=== PATIENT | female | born 2000 | race Caucasian/White ===

== ENCOUNTER 2019-02-07 06:44 | Emergency (ER) | payer MEDICAID, OTHER ==
[~2019-02-07] VITALS: Ht 175.3 cm; Wt 59.5 kg
[2019-02-07 07:32] LABS: CLARITY,URINE CLOUDY (Clear); COLOR,URINE YELLOW (Yellow); GLUCOSE, URINE NEGATIVE (Neg); KETONES,URINE TRACE mg/dl (Neg); LEUKOCYTE ESTERASE ,URINE TRACE (Neg); NITRITES, URINE NEGATIVE (Neg); OCCULT BLOOD,URINE LARGE (Neg); PROTEIN,URINE 100 mg/dl (Neg)
[2019-02-07 07:33] LABS: UA COLLECTION TYPE CLN CATCH MIDSTREAM
[2019-02-07 07:38] LABS: URINE HCG NEGATIVE (NEG)
[2019-02-07 07:43] LABS: MUCUS STRANDS MODERATE /LPF (Neg); SQUAMOUS EPITHELIAL CELL,UR FEW /LPF (FEW)
[2019-02-07 07:44] LABS: BACTERIA,URINE FEW /HPF (Neg); RBC,URINE 50-100 /HPF (0-2)
[2019-02-07] MEDS ORDERED: normal saline 1000ML IV soln IVB ONE (08:05)
[2019-02-07] MEDS ORDERED: ondansetron/PF 4mg/2ml inj IV ONE (08:05)
[2019-02-07] MEDS ORDERED: morphine 4 MG/ML inj SYRINge IV PRN (08:05)
--- NOTE | 2019-02-07 08:28 | NUR ---
TO CT. PT BEGAN HAVING INCREASING SEVERE LEFT ABDOMINAL/HIP PAIN 5-10 MINUTES AGO THAT GRADUALLY WORSENED. MORPHINE AND ZOFRAN GIVEN.
[2019-02-07 08:40] LABS: ALANINE AMINOTRANSFERASE 21 U/L (12-78); ALBUMIN 4.3 G/DL (3.4-5.0); ALBUMIN/GLOBULIN RATIO 1.2 (1.1-1.5); ALKALINE PHOSPHATASE 72 IU/L (20-180); ANION GAP 11 (8-16); ASPARTATE AMINO TRANSFERASE 23 U/L (10-37); BILIRUBIN,TOTAL 0.6 MG/DL (0.1-1.0); BLOOD UREA NITROGEN 12 MG/DL (7-18); BUN/CREATININE RATIO 16.2 (6.6-38.0); CALCIUM 9.5 MG/DL (8.5-10.1); CHLORIDE 104 MMOL/L (99-107); CREATININE 0.74 MG/DL (0.40-0.90); GLUCOSE 98 MG/DL (70-104); LIPASE 98 U/L (73-393); POTASSIUM 3.6 MMOL/L (3.5-5.1); SODIUM 140 MMOL/L (135-145); TOTAL CARBON DIOXIDE 24.6 MMOL/L (24-32); TOTAL PROTEIN 7.8 G/DL (6.4-8.2); eGFR > 90 ML/MIN
[2019-02-07 08:45] LABS: BASOPHILS % (AUTO) 0.7 % (0-1); EOSINOPHILS # (AUTO) 0.2 X10'3 (0-0.9); EOSINOPHILS % (AUTO) 3.2 % (0-6); HEMATOCRIT 42.3 % (35.0-45.0); HEMOGLOBIN 14.3 g/dl (12.0-16.0); LYMPHOCYTES # (AUTO) 1.5 X10'3 (1.1-4.8); LYMPHOCYTES % (AUTO) 26.5 % (21-51); MEAN CORPUSCULAR HEMOGLOBIN 31.5 PG (27.0-31.0); MEAN CORPUSCULAR HGB CONC 33.8 g/dL (33.0-36.5); MEAN CORPUSCULAR VOLUME 93.4 FL (78-98); MEAN PLATELET VOLUME 8.7 FL (7.4-10.4); MONOCYTES # (AUTO) 0.4 X10'3 (0-0.9); NEUTROPHILS # (AUTO) 3.4 X10'3 (1.8-7.7); NEUTROPHILS % (AUTO) 61.6 % (42-75); PLATELET COUNT 208 X10'3 (140-440); RED BLOOD COUNT 4.53 X10'6 (4.20-5.60); WHITE BLOOD COUNT 5.5 X10'3 (4.5-11.0)
[2019-02-07 09:13] VITALS: BP 110/70
== END 2019-02-07 09:42 | disposition home or self-care (01) ==
LOC: ER 06:44
DX: N20.0 Calculus of kidney (principal); R82.71 Bacteriuria; R11.10 Vomiting, unspecified
CPT/HCPCS: 36415; 74176; 76830; 76856; 80053; 81001; 81025; 83690; 85025; 87088; 96361; 96374; 96375; 99284; J2270; J2405; J7030

== ENCOUNTER 2019-09-22 11:23 | Emergency (ER) | payer MEDICAID ==
[~2019-09-22] VITALS: Ht 170.2 cm; Wt 118.2 kg
[2019-09-22] MEDS ORDERED: ketorolac tromethamine 15mg/ml inj. IM ONE (12:20)
[2019-09-22] MEDS ORDERED: orphenadrine citrate 60mg/2ml inj. IM ONE (12:20)
[2019-09-22] MEDS ORDERED: IBUP-1984 PO (12:28)
[2019-09-22] MEDS ORDERED: CYCL-1 PO (12:28)
[2019-09-22 12:35] VITALS: BP 124/65
== END 2019-09-22 12:41 | disposition home or self-care (01) ==
LOC: ER 11:24
DX: S39.012A Strain of muscle, fascia and tendon of lower back, initial encounter (principal); Z79.899 Other long term (current) drug therapy; X58.XXXA Exposure to other specified factors, initial encounter; Y93.89 Activity, other specified; Y92.89 Other specified places as the place of occurrence of the external cause; Y99.8 Other external cause status
CPT/HCPCS: 96372; 99284; J1885; J2360; 99283

== ENCOUNTER 2022-07-04 00:36 | Emergency (ER) | payer OTHER, MEDICAID ==
[~2022-07-04] VITALS: Ht 175.3 cm; Wt 72.0 kg
[~2022-07-04 00:36] MED LIST: CYCL-1 PO
[2022-07-04] MEDS ORDERED: iohexol 300mg/ml 100ml inj. ONE (00:52)
--- NOTE | 2022-07-04 01:09 | NUR ---
[facility]
[2022-07-04 01:12] LABS: BASOPHILS # (AUTO) 0.1 X10'3 (0-0.2); BASOPHILS % (AUTO) 0.7 % (0-1); EOSINOPHILS # (AUTO) 1.7 X10'3 (0-0.9); EOSINOPHILS % (AUTO) 16.4 % (0-6); HEMATOCRIT 41.5 % (35.0-45.0); HEMOGLOBIN 14.1 g/dl (12.0-16.0); LYMPHOCYTES # (AUTO) 1.6 X10'3 (1.1-4.8); LYMPHOCYTES % (AUTO) 16.1 % (21-51); MEAN CORPUSCULAR HEMOGLOBIN 31.7 PG (27.0-31.0); MEAN CORPUSCULAR HGB CONC 34.1 g/dL (33.0-36.5); MEAN PLATELET VOLUME 7.6 FL (7.4-10.4); MONOCYTES # (AUTO) 0.6 X10'3 (0-0.9); MONOCYTES % (AUTO) 5.9 % (2-12); NEUTROPHILS # (AUTO) 6.2 X10'3 (1.8-7.7); NEUTROPHILS % (AUTO) 60.9 % (42-75); PLATELET COUNT 233 X10'3 (140-440); RED BLOOD COUNT 4.46 X10'6 (4.20-5.60); RED CELL DISTRIBUTION WIDTH 13.5 % (11.5-14.5); WHITE BLOOD COUNT 10.2 X10'3 (4.5-11.0)
[2022-07-04 01:22] LABS: HCG SERUM QL NEGATIVE
[2022-07-04] MEDS ORDERED: LORazepam 2 mg/ml vial IV ONE (01:25)
[2022-07-04 01:29] LABS: ALANINE AMINOTRANSFERASE 36 U/L (12-78); ALBUMIN 3.8 G/DL (3.4-5.0); ALKALINE PHOSPHATASE 88 IU/L (46-116); ANION GAP 9 (8-16); ASPARTATE AMINO TRANSFERASE 58 U/L (10-37); BILIRUBIN,TOTAL 0.2 MG/DL (0.1-1.0); BLOOD UREA NITROGEN 11 MG/DL (7-18); BUN/CREATININE RATIO 18.6 (6.6-38.0); CALCIUM 9.1 MG/DL (8.5-10.1); CHLORIDE 106 MMOL/L (99-107); CREATININE 0.59 MG/DL (0.40-0.90); ETHANOL 0.055 GM/DL (0.0-0.010); GLUCOSE 106 MG/DL (70-104); POTASSIUM 3.9 MMOL/L (3.5-5.1); SODIUM 142 MMOL/L (135-145); TOTAL CARBON DIOXIDE 26.7 MMOL/L (24-32); TOTAL PROTEIN 7.5 G/DL (6.4-8.2); eGFR > 90 ML/MIN
[2022-07-04] MEDS ORDERED: albuterol 60 PUFF/8GM Inhaler IH PRN (02:00)
[2022-07-04] MEDS ORDERED: ketorolac trometh. 30mg/ml inj. IV ONE (02:25)
[2022-07-04 02:27] LABS: CLARITY,URINE CLEAR (Clear); COLOR,URINE YELLOW (Yellow); GLUCOSE, URINE NEGATIVE (Neg); KETONES,URINE NEGATIVE (Neg); LEUKOCYTE ESTERASE ,URINE NEGATIVE (Neg); NITRITES, URINE NEGATIVE (Neg); OCCULT BLOOD,URINE SMALL (Neg); PROTEIN,URINE NEGATIVE (Neg)
[2022-07-04] MEDS ORDERED: ACET-1025 PO (02:27)
[2022-07-04] MEDS ORDERED: IBUP-1984 PO (02:27)
[2022-07-04 02:32] LABS: UA COLLECTION TYPE NON-SPECIFIED
[2022-07-04 02:42] LABS: BACTERIA,URINE FEW /HPF (Neg); SQUAMOUS EPITHELIAL CELL,UR FEW /LPF (FEW); WBC,URINE 0-4 /HPF (0-4)
[2022-07-04 02:43] LABS: URINE AMPHETAMINE SCREEN NEGATIVE (Neg); URINE BARBITUATE SCREEN NEGATIVE (Neg); URINE BENZODIAZEPINES SCREEN POSITIVE (Neg); URINE CANNABINOID SCREEN POSITIVE (Neg); URINE COCAINE SCREEN POSITIVE (Neg); URINE METHADONE SCREEN NEGATIVE (Neg); URINE OPIATE SCREEN NEGATIVE (Neg); URINE PHENCYCLIDINE SCREEN NEGATIVE (Neg)
[2022-07-04 03:02] VITALS: BP 107/77
[2022-07-04 03:10] LABS: PLATELET ESTIMATE NORMAL; TOTAL CELLS COUNTED 100
== END 2022-07-04 03:03 | disposition home or self-care (01) ==
LOC: ER 00:36
DX: S02.2XXA Fracture of nasal bones, initial encounter for closed fracture (principal); R10.2 Pelvic and perineal pain; M79.604 Pain in right leg; J45.909 Unspecified asthma, uncomplicated; Z87.448 Personal history of other diseases of urinary system; Z79.899 Other long term (current) drug therapy; V89.2XXA Person injured in unspecified motor-vehicle accident, traffic, initial encounter
CPT/HCPCS: 36415; 70450; 70486; 71260; 72125; 73560; 73590; 74177; 80053; 80305; 80320; 81001; 84703; 85007; 85025; 94640; 96374; 99285; J1885; J3490; Q9967